=== PATIENT | female | born 1985 | race Hispanic/Latino ===

== ENCOUNTER 2019-11-11 15:57 | Inpatient (IN) | payer OTHER, SELFPAY ==
[2019-11-11] VITALS (10 sets, daily range): BP systolic 85–135; BP diastolic 49–89; PULSE 92–102; TEMP 36.4–36.7; BMI 30.9
--- NOTE | 2019-11-11 13:12 | PM.IMHP ---
H&P: HPI History of Present Illness Date/Time: 11/11/19 16:12 Chief complaint: Pre-admit Narrative: Luann Mazariegos is a 34 year old female, , F presents to [facility]OB at 40 weeks for induction of labor c/b late entry into care, sickle cell trait, MTHFR, HSV, and trichomoniasis. she understands her condition procedure and risk involved and agrees to proceed will use Cervidil to ripen the cervix and then Pitocin per protocol previous labor induction was 24 hour long labor Review of Systems Review of Systems: All systems reviewed & are unremarkable except as noted in HPI and below Constitutional: Constitutional: Reports no additional constitutional complaints Eyes: Eyes: Reports no additional eye complaints ENT: Reports system reviewed and no additional complaints, except as documented Cardiovascular: Cardiovascular: Reports no additional cardiovascular complaints Respiratory: Respiratory: Reports no additional respiratory complaints Gastrointestinal: Gastrointestinal: Reports no additional gastrointestinal complaints Genitourinary: Genitourinary: Reports no additional female genitourinary complaints Musculoskeletal: Musculoskeletal: Reports no additional musculoskeletal complaints Integumentary/Breasts: Skin/Breast: Reports system reviewed and no additional complaints, except as docu Neurologic: Reports system reviewed and no additional complaints, except as documented Psychiatric: Psychiatric: Reports no additional psychiatric complaints Endocrine: Endocrine: Reports no additional endocrine complaints Hematologic/Lymphatic: Hematologic/Lymphatic: Reports no additional hematologic/lymphatic complaints Allergic/Immunologic: Allergic/Immunologic: Reports no additional allergic/immunologic complaints [facility] Past Medical History Medical History (Updated 11/11/19 @ 13:24 by Carroll Cook MD) Anemia BV (bacterial vaginosis) Candidiasis of vagina Chlamydia infection 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 HSV (herpes simplex virus) anogenital infection Maternal varicella, non-immune Rubella non-immune status, antepartum Sickle cell trait Trichomonal vaginitis UTI (urinary tract infection) Family History Family History Other Unknown family medical history Social History Social History Smoking status: Never smoker Second hand tobacco smoke exposure: No Alcohol intake: never Substance use: never Substance use type: does not use Living arrangements: with family Occupation/Education: unemployed Gender identity (if verbalized by the patient): Female Sexual Orientation (if Verbalized by the Patient): Straight or Heterosexual Spiritual care concerns: No Agree to blood products: Yes Meds Home Medications and Allergies Home Medications Medication Instructions Recorded Confirmed Type PNV cmb#95-ferrous fumarate-FA 1 tablet PO DAILY 10/12/19 10/12/19 History [] acyclovir 800 mg PO DAILY 10/12/19 10/12/19 History aspirin [Aspirin Low Dose] 81 mg PO BID 10/12/19 10/12/19 History calcium carbonate-vitamin D3 1 tablet PO BID 10/12/19 10/12/19 History [Calcium 600 + D(3)] folic acid 2 mg PO BID 10/12/19 10/12/19 History progesterone micronized 200 mg PO BID 10/12/19 10/12/19 History Allergies Allergy/AdvReac Type Severity Reaction Status Date / Time No Known Allergies Allergy Verified 10/12/19 12:12 Exam Const: General: comfortable and no acute distress HENMT: Ears: TM's normal bilaterally Eyes: General: appearance normal, both eyes and all related structures Neck: Neck: no JVD Chest: Chest palpation & inspection: normal inspection of the chest Breast/axilla inspection: normal inspection of the breasts Breast/axilla palpation: normal palpation of the breasts Resp: Effort & Inspection: normal respiratory effort Auscultation: clear t
--- NOTE | 2019-11-11 13:26 | P.HPUP_ITS ---
History and Physical Update Update Date/Time: 11/11/19 16:26 History and Physical has been reviewed, including an updated exam of the patient. There are NO changes in the patient's condition. Risks, benefits, and alternatives have been discussed and questions answered. Patient agrees to proceed with procedure. 34 yo, , F presents to [facility] for elective induction of labor OB at 40 weeks. c/b late entry into care, sickle cell trait, MTHFR, HSV, and trichomoniasis.
--- NOTE | 2019-11-11 13:27 | WPDOBADMIT ---
Obstetrics - Admit Note Admission Note: record reviewed. No pertinent additions to the history and/or any subsequent changes in the physical findings that are not consistent with the expected course of the were found. Additions to the history and/or subsequent changes in the physical findings follow. None. 34 yo, , F presents to [facility] for elective induction of labor at 40 weeks. c/b late entry into care, sickle cell trait, MTHFR, HSV, and trichomoniasis. Cervidil followed by Pitocin
--- NOTE | 2019-11-11 15:57 | LDADM ---
This patient, Luann Mazariegos, was admitted to Labor/Delivery/Recovery 108 on 11/11/19 at 15:57. Plans for labor, pain management and were discussed with patient. Patient/family oriented to hospital policies and general routines including ID bracelet, bed and alarms, visiting hours, pain management, procedures, bathroom and other care routines, personal items, smoking policy, room service/diet and guest tray routines, security routines, and visiting hours. Patient/Family are encouraged to report perceived risks to care and to ask questions if they do not understand what they are told or what they should do. See OBIX for further documentation.
[2019-11-11 16:46] LABS: Basophils Percent Auto 0.2 % (0.2-1.2); Eosinophils Absolute Auto 0.1 K/mm3 (0-0.3); Eosinophils Percent Auto 0.9 % (0-4.4); Hematocrit 32.3 % (37.0-47.0); Hemoglobin 10.9 g/dL (12.0-15.0); Lymphocytes Absolute Auto 1.77 K/mm3 (0.9-3.2); Lymphocytes Percent Auto 17.8 % (18.3-44.2); Mean Corpuscular HGB Conc 33.7 g/dl (32-36); Mean Corpuscular Hemoglobin 27.2 pg (26-34); Mean Corpuscular Volume 80.5 fl (80-100); Mean Platelet Volume 11.2 fl (7.4-10.4); Monocytes Absolute Auto 0.8 K/mm3 (0.1-0.6); Monocytes Percent Auto 7.5 % (2.6-8.5); Neutrophils Absolute Auto 7.2 K/mm3 (1.3-6.7); Neutrophils Percent Auto 72.6 % (45.5-73.1); Platelet Count Result 268 k/mm3 (150-375); Red Blood Count 4.01 M/mm3 (4.2-5.4); Red Cell Distribution Width 14.3 % (11.5-14.5); White Blood Count 9.9 K/mm3 (4.5-10.0)
[2019-11-11] MEDS: DINOPROSTONE 10 MG VAG INSERT VAGINAL (16:59)
--- NOTE | 2019-11-11 18:07 | WPDANESEPP ---
Anes - Eval Pre Procedure Procedure: labor epidural Date/Time: 11/11/19 18:07 Surgeon: rosie Pre Op Diagnosis: Induction of Labor Patient Data Age: 34 Gender: F Height: 1.68 m Weight: 87 kg Last Vital Signs Temp 36.7 C 11/11/19 16:59 Pulse 95 11/11/19 18:01 BP 108/61 11/11/19 18:01 Allergies Allergy/AdvReac Type Severity Reaction Status Date / Time No Known Allergies Allergy Verified 11/11/19 16:48 Home Medications Medication Instructions Recorded Confirmed Type PNV cmb#95-ferrous fumarate-FA 1 tablet PO DAILY 10/12/19 11/11/19 History [] acyclovir 800 mg PO DAILY 10/12/19 11/11/19 History calcium carbonate-vitamin D3 1 tablet PO BID 10/12/19 11/11/19 History [Calcium 600 + D(3)] folic acid 2 mg PO BID 10/12/19 11/11/19 History Laboratory Tests 11/11/19 11/11/19 16:36 16:36 WBC 9.9 K/mm3 K/mm3 (4.5-10.0) RBC 4.01 M/mm3 L M/mm3 (4.2-5.4) Hgb 10.9 g/dL L g/dL (12.0-15.0) Hct 32.3 % L % (37.0-47.0) MCV 80.5 fl fl (80-100) MCH 27.2 pg pg (26-34) MCHC 33.7 g/dl g/dl (32-36) RDW 14.3 % % (11.5-14.5) Plt Count 268 k/mm3 k/mm3 (150-375) MPV 11.2 fl H fl (7.4-10.4) Immature Gran % (Auto) 1.0 % H % (0-0.5) Neut % (Auto) 72.6 % % (45.5-73.1) Lymph % (Auto) 17.8 % L % (18.3-44.2) Nance % (Auto) 7.5 % % (2.6-8.5) Eos % (Auto) 0.9 % % (0-4.4) Baso % (Auto) 0.2 % % (0.2-1.2) Lymph # (Auto) 1.77 K/mm3 K/mm3 (0.9-3.2) Nance # (Auto) 0.8 K/mm3 H K/mm3 (0.1-0.6) Eos # (Auto) 0.1 K/mm3 K/mm3 (0-0.3) Baso # (Auto) 0.0 K/mm3 K/mm3 (0.0-0.1) Abs Immat Gran (auto) 0.10 K/mm3 H K/mm3 (0.00-0.031) Absolute Neuts (auto) 7.2 K/mm3 H K/mm3 (1.3-6.7) Absolute Nucleated RBC 0.0 K/mm3 K/mm3 (0.0-0.012) Nucleated RBC % 0.0 % % (0.0-0.2) RPR Pending Patient hx anesthesia problems: none Family hx anesthesia problems: none PMFSH Past Medical History Medical History (Updated 11/11/19 @ 13:24 by Carroll Cook MD) Anemia BV (bacterial vaginosis) Candidiasis of vagina Chlamydia infection Heterozygous MTHFR mutation [id number] HSV (herpes simplex virus) anogenital infection Maternal varicella, non-immune Rubella non-immune status, antepartum Sickle cell trait Trichomonal vaginitis UTI (urinary tract infection) Family History Family History Other Unknown family medical history Social History Social History Smoking status: Never smoker Second hand tobacco smoke exposure: No Alcohol intake: never Substance use: never Substance use type: does not use Living arrangements: with family Occupation/Education: unemployed Gender identity (if verbalized by the patient): Female Sexual Orientation (if Verbalized by the Patient): Straight or Heterosexual Spiritual care concerns: No Agree to blood products: Yes Exam Day of Procedure 11/11/19 18:07
[2019-11-12] VITALS (215 sets, daily range): BP systolic 48–246; BP diastolic 21–203; PULSE 56–284; RESP 14–16; TEMP 36.2–37.1; O2SAT 79–100
[2019-11-12] MEDS: LACTATED RINGERS 1,000 ML 125 ML IV CONT ×3 (05:52→20:00)
[2019-11-12] MEDS: OXYTOCIN 30 UNITS/NS 500 ML 30 UNITS/500 ML BAG IV CONT (05:53)
--- NOTE | 2019-11-12 07:02 | PM.OBPNLAB ---
Pain Control Date/time seen: 11/12/19 07:02 34yo at 40w IOL cervidil out at 6am now 2.5cm Pain control: tolerating well Pelvic Exam Dilation (cm): 2 Effacement (%): 50 station: -2 Amniotic membrane status: Intact Contractions Monitor mode: External Contraction frequency: 10 Contraction pattern: Regular Contraction intensity: Mild Status status: Category l Assessment and Plan Pitocin rate (mU/min): 2 Assessment: induction ongoing Plan: continuous present management
[2019-11-12 09:15] LABS: Rapid Plasma Reagin Non-Reactive (NonReactive)
--- NOTE | 2019-11-12 09:53 | PM.OBPNLAB ---
Pain Control Date/time seen: 11/12/19 09:53 Pain control: tolerating well Pelvic Exam Dilation (cm): 3 Effacement (%): 50 station: -2 Amniotic membrane status: Intact Comments: AROM clear AF bloody show IUPC placed Contractions Monitor mode: Internal (IUPC placed) Contraction frequency: 2 Contraction pattern: Regular Contraction intensity: Mild Status status: Category l Assessment and Plan Pitocin rate (mU/min): 6 Assessment: active labor and induction ongoing Plan: continuous present management and other (epidural)
--- NOTE | 2019-11-12 12:15 | PM.OBPNLAB ---
Pain Control Date/time seen: 11/12/19 12:15 Pain control: tolerating well and epidural Pelvic Exam Dilation (cm): 3 Effacement (%): 50 station: -4 Amniotic membrane status: Ruptured Contractions Monitor mode: Internal (IUPC placed) Contraction frequency: 2 Contraction duration: 45 Contraction pattern: Regular Contraction phase: Resting Contraction intensity: Mild Status status: Category l Assessment and Plan Pitocin rate (mU/min): 12 Assessment: induction ongoing Plan: continuous present management
[2019-11-12] MEDS: PHENYLEPHRINE 1,000 MCG/10 ML SYRINGE 100 MCG IV PUSH (13:49)
[2019-11-12] MEDS: ONDANSETRON INJ 4 MG/2 ML VIAL IV PUSH (13:49)
--- NOTE | 2019-11-12 21:12 | PM.OBPNLAB ---
Pain Control Date/time seen: 11/12/19 14:12 Pain control: tolerating well and epidural Pelvic Exam Dilation (cm): 4 Effacement (%): 50 station: -4 Amniotic membrane status: Ruptured Contractions Monitor mode: Internal (IUPC placed) Contraction frequency: 6 Contraction pattern: Regular Contraction phase: Resting Contraction intensity: Mild Status status: Category l Assessment and Plan Pitocin rate (mU/min): 8 Assessment: active labor Plan: continuous present management Comments: hypotension needs to be correctted
--- NOTE | 2019-11-12 21:14 | PM.OBPNLAB ---
Pain Control Date/time seen: 11/12/19 21:14 Pain control: tolerating well and epidural Pelvic Exam Dilation (cm): 5 Effacement (%): 50 station: -4 Amniotic membrane status: Ruptured Contractions Monitor mode: Internal (IUPC placed) Contraction frequency: 6 Contraction pattern: Regular Contraction phase: Resting Contraction intensity: Mild Status status: Category l Assessment and Plan Assessment: other (ARREST OF DILATION, FAILURE TO DESCEND, CPD) Plan: Comments: i explained condition procedure and risks patient understands accepts and agrees to proceed
--- NOTE | 2019-11-12 22:26 | PM.OBPRVD ---
OB - Delivery Note Procedure Procedure: Procedures Operation Date: 11/12/19 21:15 Primary low transverse section with delivery of viable male infant and placenta Intrapartal events: Prolonged Labor > 20 hours and Ceph-Pelvic Disproportion Induction method: per misoprostol protocol and per pitocin protocol Delivery augmentation: rupture of membranes and pitocin Delivery monitor: external FHT and internal uterine Route of delivery: ( primary low transverse section) Specimen: Yes ( placenta and cord blood gases) Estimated blood loss (mL): 230 Anesthesia type: Epidural ( Duramorph) Disposition: floor Complications: none Baby Date of : 11/12/19 Time of : 21:59 Weeks of gestation at delivery: 40 gender: Male ( Malik) Weight (pounds): 9 Weight (ounces): 2 presentation: vertex position: Left Occiput Transverse Placenta delivery description: Manual Removal and Normal Configuration cord vessel description: 3 Vessels score one minute: 8 score five minutes: 9
--- NOTE | 2019-11-12 22:31 | PM.PROC ---
Procedure Note - Detailed Date of procedure: 11/12/19 Pre-op diagnosis: Induction of Labor term Failure to progress in labor Arrest of descent Cephalopelvic disproportion MTHFR sickle cell trait HSV History of STDs Post-op diagnosis: same ( delivered viable male infant and placenta) Procedure performed: primary low transverse section with delivery of viable male infant and placenta Description of procedure: the patient was given informed consent and she was taken to the operating room where she was placed in the supine position and the epidural level was taken level adequate for section and her abdomen was prepped and then draped in the usual sterile fashion and a time-out was performed. A Pfannenstiel incision was made in the skin in the abdomen was opened in layers hemostasis obtained by cauterization after entering the fascia bilaterally the fascia was undermined inferiorly and superiorly and the rectus muscles were in the midline the peritoneum was entered with electrocautery. A transverse incision was then made to the uterus and extended bilaterally the vertex was then delivered via the abdominal incision with the Nose and Throat being bulb suction the was delivered and placed onto the maternal abdomen where the cord was clamped and cut the infant had spontaneous respirations and cry was handed off to the OB nurse in attendance from the nursery scores 989 at 1 and 5 minutes baby boy otf BauerMalik delivered at 9:59 p.m. weighing 9 lb 2 oz 21 in long placenta was then delivered intact 3 vessel cord at 10:01 p.m. the uterus contracted well with Pitocin given intravenously and 10 units of Pitocin was given into the myometrium blood clots membranes were removed from the intrauterine cavity. The uterus was then externalized and the uterine incision was then repaired in 2 layers with 0 Vicryl in a running interlocking fashion the 2nd being an imbricating stitch of [id number] stitch was required along the left uterine incision with good hemostasis. Irrigation in the abdominal cavity was followed by removal of blood clots from the cul-de-sac and both lateral gutters and the uterus was returned to the peritoneal cavity. The sponge needle and instrument counts were correct the anterior peritoneum and rectus muscles reapproximated with 0 Vicryl suture in a running fashion fascia was closed with 2. Quill S RS system bilaterally Ruby's fascia reapproximated with 3 0 plain and the skin was closed with I NS OR be absorbable davida and Dermabond to the skin a sterile dressing was applied and the patient was taken to the recovery room stable condition both mom and baby were stable Anesthesia: epidural ( Duramorph) Surgeon: Carroll Cook MD Wall Scraper: surgical assistance x2 Estimated blood loss (mL): 231 IV fluids (mL): 2,000 Urine output (mL): 200 Drains: No Packing: No Pathology: yes ( placenta and cord blood gases) Complications: None Condition: stable Disposition: floor Findings: normal uterus tubes and ovaries Viable male infant Apgars 8 and 9 at 1 and 5 minutes born at 9:59 p.m. weighing 9 lb 2 oz 21 in long taken to the Nursing stable condition spontaneous respirations and cry no gross abnormalities on the pagan examination Placenta intact three-vessel cord Antibiotics Ancef 2 g VTE prevention SCDs Patient taken to recovery room stable condition She will be breast feeding head of advertising Dr. Spicer she does desire circumcision for the baby
[2019-11-12] MEDS: ceFAZolin 2 GM/D5W 50 ML 2 GM/50 ML BAG IVPB (22:38)
--- NOTE | 2019-11-12 22:50 | WPDANESEPP ---
Anes - Eval Pre Procedure Procedure: Operation Date: 11/12/19 21:15 Proposed Procedures p Section - Carroll Cook MD Date/Time: 11/12/19 22:50 Pre Op Diagnosis: Induction of Labor Patient Data Age: 34 Gender: F Height: 1.68 m Weight: 87 kg Last Vital Signs Temp 36.2 C L 11/12/19 18:42 Pulse 159 H 11/12/19 22:47 BP 99/48 L 11/12/19 22:47 Pulse Ox 98 11/12/19 22:45 Allergies Allergy/AdvReac Type Severity Reaction Status Date / Time No Known Allergies Allergy Verified 11/11/19 16:48 Home Medications Medication Instructions Recorded Confirmed Type PNV cmb#95-ferrous fumarate-FA 1 tablet PO DAILY 10/12/19 11/11/19 History [] acyclovir 800 mg PO DAILY 10/12/19 11/11/19 History calcium carbonate-vitamin D3 1 tablet PO BID 10/12/19 11/11/19 History [Calcium 600 + D(3)] folic acid 2 mg PO BID 10/12/19 11/11/19 History Laboratory Tests 11/11/19 16:36 RPR Non-reactive (NonReactive) Patient hx anesthesia problems: none Family hx anesthesia problems: none PMFSH Past Medical History Medical History (Updated 11/11/19 @ 13:24 by Carroll Cook MD) Anemia BV (bacterial vaginosis) Candidiasis of vagina Chlamydia infection Heterozygous MTHFR mutation [id number] HSV (herpes simplex virus) anogenital infection Maternal varicella, non-immune Rubella non-immune status, antepartum Sickle cell trait Trichomonal vaginitis UTI (urinary tract infection) Family History Family History (Updated 11/12/19 @ 06:29 by Carmelina Marie RN) Other No known health problems Social History Social History Smoking status: Never smoker Second hand tobacco smoke exposure: No Alcohol intake: never Substance use: never Substance use type: does not use Living arrangements: with family Occupation/Education: unemployed Gender identity (if verbalized by the patient): Female Sexual Orientation (if Verbalized by the Patient): Straight or Heterosexual Spiritual care concerns: No Agree to blood products: Yes Exam Day of Procedure 11/12/19 22:50
--- NOTE | 2019-11-12 22:52 | PM.OBDSVD ---
DS: Admitting Diagnosis Admitting Diagnosis Admitting Diagnosis: Induction of Labor term Sickle cell trait MTHFR Anemia Maternal varicella and rubella nonimmune HSV History of STDs DS: Discharge Diagnosis Discharge Diagnosis (1) Term delivered: Code(s): O80 - Encounter for full-term uncomplicated delivery Status: Acute (2) Cephalopelvic disproportion: Code(s): O33.9 - Maternal care for disproportion, unspecified Status: Acute (3) Anemia: Code(s): D64.9 - Anemia, unspecified Status: Acute (4) Sickle cell trait: Code(s): D57.3 - Sickle-cell trait Status: Acute (5) Rubella non-immune status, antepartum: Code(s): O99.89 - Other specified diseases and conditions complicating , childbirth and the puerperium; Z28.3 - Underimmunization status Status: Acute (6) Maternal varicella, non-immune: Code(s): O09.899 - Supervision of other high risk pregnancies, unspecified trimester; Z28.3 - Underimmunization status Status: Acute (7) HSV (herpes simplex virus) anogenital infection: Code(s): A60.9 - Anogenital herpesviral infection, unspecified Status: Acute (8) Heterozygous MTHFR mutation I2125T: Code(s): E72.12 - Methylenetetrahydrofolate reductase deficiency Status: Acute OB - DS: Summary Hospital Course Time spent discussing smoking cessation with patient: 3 to 10 minutes OB Procedures : Ultrasound OB Procedures Intrapartum: ( primary low transverse) low cervical, transverse OB Procedures: : Rubella lg Peripartum Data Delivery Method: Section Procedures: Procedures Operation Date: 11/12/19 21:15 primary low-transverse section delivery of viable male infant and placenta under epidural anesthesia complications: none [place] 1: Gender: Male Disposition of : home Status at Discharge Functional status at discharge: independent ambulation Overall status at discharge: patient is back to baseline Time Spent with Patient Time attestation: Total time spent providing and/or coordinating discharge services: Time spent: Less than 30 minutes Exam Const: General: comfortable and no acute distress Orientation/consciousness: patient oriented x3 Limitations: no limitations HENMT: Head: normal to inspection Face and sinus: normal facial exam Mouth: Yes Normal oral and palatal mucosa present Eyes: General: appearance normal, both eyes and all related structures Neck: Neck: normal visual inspection Chest: Breast/axilla inspection: normal inspection of the breasts Breast/axilla palpation: normal palpation of the breasts Resp: Effort & Inspection: normal respiratory effort Auscultation: clear to auscultation bilaterally Cardio: Rate: regular rate GI: GI Palp: Yes Soft to palpation Percussion: Yes normal to percussion Auscultation: normal bowel sounds : General: Yes bladder normal to inspection Back/Spine/Pelvis: Back: no CVA tenderness Skin: General skin exam: normal color Neuro: General: oriented to person and patient oriented x3 Cranial nerves: Yes CN's II-XII intact bilaterally Cognition (Neuro): normal cognition Speech: normal speech Gait exam (Neuro): Normal gait present Motor exam (neuro): 5/5 motor strength present throughout Sensory Exam: normal sensation Extrem: General: normal to inspection and full ROM Psych: Appearance: grossly normal Mental Status: mental status grossly normal Affect: normal affect Attitude: cooperative Thought content: Yes Normal thought content present Judgement: Good judgement present (Psych) DS: Data Data Completed and Pending Labs on day of discharge: Labs from last 24 hours 11/11/19 16:36 RPR Non-reactive Discharge Plan Discharge Attending physician on discharge: Carroll Cook Discharging Clinician: Carroll Cook Anticip
[2019-11-12] MEDS: MEPERIDINE HCL INJ (*CRX) 50 MG/ML AMPUL 12.5 MG IV PUSH (23:33)
[2019-11-12] MEDS: KETOROLAC 30 MG/ML VIAL (*BKC) IV PUSH (23:41)
[2019-11-13] VITALS (32 sets, daily range): BP systolic 89–128; BP diastolic 52–85; PULSE 88–110; RESP 14–16; TEMP 36.3–36.7; O2SAT 94–100
[2019-11-13] MEDS: OXYTOCIN 30 UNITS/NS 500 ML 30 UNITS/500 ML BAG 125 UNITS IV CONT (01:36)
--- NOTE | 2019-11-13 01:39 | OBPPTRN ---
Patient transferred to post room #290 via stretcher. Support person present. Oriented to unit, room, information board, rooming in, admission packet and security measures. Patient verbalizes understanding. Infant with patient.
[2019-11-13] MEDS: KETOROLAC 30 MG/ML VIAL (*BKC) IV PUSH ×2 (05:44→11:33)
[2019-11-13] MEDS: DEXTROSE 5%/0.45% SOD CHL 1,000 ML 125 ML IV CONT (05:44)
[2019-11-13 06:02] LABS: Basophils Absolute Auto 0.1 K/mm3 (0.0-0.1); Basophils Percent Auto 0.3 % (0.2-1.2); Eosinophils Percent Auto 0.1 % (0-4.4); Hematocrit 30.4 % (37.0-47.0); Hemoglobin 10.1 g/dL (12.0-15.0); Immature Granulocyte Absolute 0.12 K/mm3 (0.00-0.031); Immature Granulocyte Percent A 0.8 % (0-0.5); Lymphocytes Absolute Auto 1.77 K/mm3 (0.9-3.2); Lymphocytes Percent Auto 11.2 % (18.3-44.2); Mean Corpuscular HGB Conc 33.2 g/dl (32-36); Mean Corpuscular Volume 81.3 fl (80-100); Mean Platelet Volume 11.5 fl (7.4-10.4); Monocytes Percent Auto 6.2 % (2.6-8.5); Neutrophils Absolute Auto 12.8 K/mm3 (1.3-6.7); Neutrophils Percent Auto 81.4 % (45.5-73.1); Platelet Count Result 225 k/mm3 (150-375); Red Blood Count 3.74 M/mm3 (4.2-5.4); Red Cell Distribution Width 14.2 % (11.5-14.5); White Blood Count 15.8 K/mm3 (4.5-10.0)
[2019-11-13] MEDS: DOCUSATE SODIUM 100 MG CAPSULE PO ×2 (11:33→16:30)
[2019-11-13] MEDS: MULTIVIT/MIN/PREN/FOL AC/IRON TABLET 1 TAB PO (11:33)
[2019-11-13] MEDS: ACYCLOVIR 400 MG TABLET 800 MG PO (11:33)
[2019-11-13] MEDS: FOLIC ACID 1 MG TABLET 2 MG PO ×2 (11:33→16:34)
--- NOTE | 2019-11-13 12:38 | WPDANLDPN2 ---
Anes-Prog Note L&D Date/Time: 11/13/19 12:38 Comfortable throughout: labor and section Neuraxial method: epidural Epidural/Spinal procedure site: clean & non-tender Neuro status: Neuro function grossly intact. Cardiovascular status: normal Respiratory status: normal Airway patency: baseline Mental status: baseline Post-Op hydration status: normal Vital Signs: Last Vital Signs Temp 36.7 C 11/13/19 11:35 Pulse 105 H 11/13/19 11:35 Resp 16 11/13/19 11:35 BP 109/69 11/13/19 11:35 Pulse Ox 100 11/13/19 08:15 Pain score (VAS): 0/10. Patient resting in bed at time of assessment, appears comfortable. Support person at bedside. I/O: Intake & Output 11/12/19 11/13/19 11/13/19 23:59 07:59 15:59 Intake Total 1000 300 Output Total 430 230 750 Balance 570 -230 -450 Post-procedural complaints: nausea (nausea, relief with prn medication) Patient feedback: Patient satisfied with anesthetic care.
--- NOTE | 2019-11-13 12:39 | WPDANLDNPN2 ---
Anes-Prog Note L&D-Neuraxial Date/Time: 11/13/19 12:39 Neuraxial medications: epidural PF morphine Opiod-related complaints: nausea Patient feedback: Patient satisfied with post-operative pain management.
[2019-11-13] MEDS: HYDROcodone/acetaminophen (*CRX) 5-325 MG TABLET 1 TAB PO (16:30)
[2019-11-13] MEDS: IBUPROFEN 600 MG TABLET PO (16:35)
[2019-11-14] MEDS: IBUPROFEN 600 MG TABLET PO ×2 (02:05→09:43)
[2019-11-14 07:00] VITALS: BP 101/67; PULSE 91; RESP 18; TEMP 36.2
[2019-11-14] MEDS: ACYCLOVIR 400 MG TABLET 800 MG PO (09:43)
[2019-11-14] MEDS: FOLIC ACID 1 MG TABLET 2 MG PO (09:43)
[2019-11-14] MEDS: DOCUSATE SODIUM 100 MG CAPSULE PO (09:43)
[2019-11-14] MEDS: MULTIVIT/MIN/PREN/FOL AC/IRON TABLET 1 TAB PO (09:43)
--- NOTE | 2019-11-14 10:43 | PM.OBPNVD ---
OB - PN: Subj Subjective Date/time seen: 11/13/19 10:43 Patient comments: no complaints and pain well controlled baby status: doing well and nursing well [place] feeding status: exclusively breast feeding OB - PN: Obj Data Labs CBC & Chem 7: 11/13/19 05:37 OB - PN A/P Assessment and Plan (1) Term delivered: Code(s): O80 - Encounter for full-term uncomplicated delivery Status: Acute Assessment and Plan: pod # (2) Cephalopelvic disproportion: Code(s): O33.9 - Maternal care for disproportion, unspecified Status: Acute (3) Anemia: Code(s): D64.9 - Anemia, unspecified Status: Acute (4) HSV (herpes simplex virus) anogenital infection: Code(s): A60.9 - Anogenital herpesviral infection, unspecified Status: Acute (5) Rubella non-immune status, antepartum: Code(s): O99.89 - Other specified diseases and conditions complicating , childbirth and the puerperium; Z28.3 - Underimmunization status Status: Acute Assessment and Plan: rubella vaccine Time Spent With Patient Time: Total time spent is greater than 50% in coordination of care (as documented) at patient's floor/unit and/or counseling patient: Review of Systems Review of Systems: All systems reviewed & are unremarkable except as noted in HPI and below Exam Const: General: comfortable and no acute distress Orientation/consciousness: patient oriented x3 Chest: Breast/axilla inspection: normal inspection of the breasts Resp: Effort & Inspection: normal respiratory effort Cardio: Rate: regular rate GI: Auscultation: normal bowel sounds : General: Yes bladder normal to inspection and Yes no CVA tenderness Urinary Catheter: Urinary Catheter: patent and draining Psych: Appearance: grossly normal Affect: normal affect Attitude: cooperative Judgement: Good judgement present (Psych)
[2019-11-14] MEDS: MEASLES,MUMPS,RUBELLA VACCINE 0.5 ML VIAL SUB-Q (11:34)
[2019-11-15 10:25] VITALS: BP 125/84; PULSE 97; RESP 16; TEMP 36.6; O2SAT 98
== END 2019-11-14 14:30 | disposition home or self-care (01) | DRG 540 ==
LOC: ANHLDR 11-12 22:52 → ANHOB2 11-13 01:49
PROVIDERS: Admitting Provider Obstetrics & Gynecology; Visit Provider Obstetrics & Gynecology
PROC: 10D00Z1 Extraction of Products of Conception, Low, Open Approach (ICD-10-PCS; CPT 59514; principal; 2019-11-12 21:15)
DX: O62.0 Primary inadequate contractions (principal); O33.9 Maternal care for disproportion, unspecified; O32.4XX0 Maternal care for high head at term, not applicable or unspecified; O99.284 Endocrine, nutritional and metabolic diseases complicating childbirth; E72.12 Methylenetetrahydrofolate reductase deficiency; D57.3 Sickle-cell trait; O99.02 Anemia complicating childbirth; O98.52 Other viral diseases complicating childbirth; B00.9 Herpesviral infection, unspecified; O98.32 Other infections with a predominantly sexual mode of transmission complicating childbirth; A59.9 Trichomoniasis, unspecified; O76 Abnormality in fetal heart rate and rhythm complicating labor and delivery; Z3A.40 40 weeks gestation of pregnancy; Z37.0 Single live birth
CPT/HCPCS: 36415; 85025; 86592; 86850; 86900; 86901; 88307; 90710; A9270; J0690; J1885; J2175; J2274; J2370; J2405; J2590; J2795; J7120